=== PATIENT | female | born 1940 | race Asian ===

== ENCOUNTER → 2016-10-27 | Outpatient (CLI) | payer MEDICARE, BC | END | disposition home or self-care (01) | LOC: RADPV 11:52 | PROVIDERS: ATTEND Orthopaedic Surgery | DX: M17.0 Bilateral primary osteoarthritis of knee (principal); M25.762 Osteophyte, left knee; M25.761 Osteophyte, right knee ==

== ENCOUNTER → 2016-12-22 | Outpatient (CLI) | payer MEDICARE, BC | END | disposition home or self-care (01) | LOC: RADPV 11:20 | PROVIDERS: ATTEND Family Medicine | DX: J18.9 Pneumonia, unspecified organism (principal); I70.0 Atherosclerosis of aorta | CPT/HCPCS: 71020 ==

== ENCOUNTER → 2018-02-14 | Outpatient (CLI) | payer MEDICARE, BC | END | disposition home or self-care (01) | LOC: RADPV 09:50 | PROVIDERS: ATTEND Orthopaedic Surgery | DX: M17.0 Bilateral primary osteoarthritis of knee (principal) ==

== ENCOUNTER → 2018-06-10 | Outpatient (CLI) | payer MEDICARE, BC | END | disposition home or self-care (01) | LOC: RADPV 10:50 | PROVIDERS: ATTEND Nurse Practitioner | DX: M47.816 Spondylosis without myelopathy or radiculopathy, lumbar region (principal) | CPT/HCPCS: 72100 ==

== ENCOUNTER 2018-06-27 07:13 | Day surgery (SDC) | payer MEDICARE, BC ==
[~2018-06-27] VITALS: Ht 157.5 cm; Wt 91.4 kg
[2018-06-27] MEDS ORDERED: RINGERS SOLUTION,LACTATED 1,000 ML IV ONE ×3 (07:30→08:03)
[2018-06-27] MEDS ORDERED: CeFAZolin 2 GM/DEXTROSE 50 ML IV ONE ×2 (08:03→09:30)
[2018-06-27] MEDS ORDERED: ESCI10TA PO (08:57)
[2018-06-27] MEDS ORDERED: SULF1TAB4 PO (08:57)
[2018-06-27] MEDS ORDERED: HYDR25TA PO (08:57)
[2018-06-27] MEDS ORDERED: VALS160T2 PO (08:57)
[2018-06-27 09:24] LABS: BASOPHILS % (AUTO) 0.8 % (0.0-2.0); EOSINOPHILS % (AUTO) 2.5 % (1.0-6.0); HEMATOCRIT 39.7 % (36-46); HEMOGLOBIN 13.5 g/dL (12.0-16.0); LYMPHOCYTES # (AUTO) 1.6 K/uL (1.0-4.8); LYMPHOCYTES % (AUTO) 20.9 % (22.0-44.0); MEAN CORPUSCULAR HEMOGLOBIN 29.1 pg (26.0-34.0); MEAN CORPUSCULAR HGB CONC 33.9 G/dL (31.0-37.0); MEAN CORPUSCULAR VOLUME 86 fL (80-100); MONOCYTES # (AUTO) 0.5 K/uL (0.1-1.0); MONOCYTES % (AUTO) 6.4 % (2.0-9.0); NEUTROPHILS # (AUTO) 5.3 K/uL (1.8-7.7); NEUTROPHILS % (AUTO) 69.4 % (40.0-70.0); PLATELET COUNT (AUTO) 250 K/uL (150-450); RED BLOOD CELL COUNT(AUTO) 4.62 MIL/uL (4.00-5.20); RED CELL DISTRIBUTION WIDTH 13.9 % (11.5-14.5)
[2018-06-27 09:33] LABS: CALCIUM, TOTAL 8.4 mg/dL (8.8-10.5); CREATININE 0.94 mg/dL (0.60-1.30); POTASSIUM 4.2 mmol/L (3.5-5.1)
[2018-06-27 09:57] LABS: INR 0.9 (0.9-1.1); PROTHROMBIN TIME 9.4 SEC (9.4-11.6)
[2018-06-27] MEDS ORDERED: BUPIVACAINE HCL/PF 0.5% 30 ML VIAL ONE (10:30)
[2018-06-27] MEDS ORDERED: ACETAMINOPHEN 1000 MG/ISO-OSM 100 ML IV ONE (10:34)
[2018-06-27] MEDS ORDERED: MEPERIDINE-PF 25 MG/ML VIAL IVP PRN (10:45)
[2018-06-27] MEDS ORDERED: FentaNYL CITRATE-PF 100 MCG/2 ML VIAL IVP PRN (10:45)
[2018-06-27] MEDS ORDERED: HYDROmorphone 2 MG/ML SYRINGE IVP PRN (10:45)
[2018-06-27] MEDS ORDERED: HYDROmorphone 2 MG/ML SYRINGE ONE (11:35)
[2018-06-27] MEDS ORDERED: PHENYLEPHRINE HCL 10 MG/ML VIAL IVP ONE (12:00)
[2018-06-27] MEDS ORDERED: DEXAMETHASONE SOD PHOS 4 MG/ML VIAL IVP ONE (12:00)
[2018-06-27] MEDS ORDERED: 0.9% SODIUM CHLORIDE 10 ML VIAL IVP ONE (12:00)
[2018-06-27] MEDS ORDERED: KETOROLAC TROMETHAMINE 60 MG/2 ML VIAL IM ONE (12:00)
[2018-06-27] MEDS ORDERED: PROPOFOL 1% 20 ML VIAL IVP ONE (12:00)
[2018-06-27] MEDS ORDERED: MIDAZOLAM HCL 2 MG/2 ML VIAL IVP ONE (12:00)
[2018-06-27] MEDS ORDERED: LIDOCAINE/PF 2% 5 ML VIAL INJ ONE (12:00)
[2018-06-27] MEDS ORDERED: FentaNYL CITRATE-PF 100 MCG/2 ML VIAL IVP ONE (12:00)
[2018-06-27] MEDS ORDERED: ONDANSETRON HCL 4 MG/2 ML VIAL IVP ONE (12:00)
[2018-06-27] MEDS ORDERED: OXYGEN THERAPY IH SCH (20:00)
== END 2018-06-27 12:30 | disposition home or self-care (01) ==
LOC: SURGERY 07:13
PROVIDERS: ATTEND Orthopaedic Surgery
DX: M70.41 Prepatellar bursitis, right knee (principal); I10 Essential (primary) hypertension; M17.0 Bilateral primary osteoarthritis of knee; M51.16 Intervertebral disc disorders with radiculopathy, lumbar region; M54.2 Cervicalgia; E66.3 Overweight; M23.51 Chronic instability of knee, right knee; Z79.01 Long term (current) use of anticoagulants; F32.9 Major depressive disorder, single episode, unspecified; Z68.36 Body mass index [BMI] 36.0-36.9, adult; Z88.0 Allergy status to penicillin; Z88.1 Allergy status to other antibiotic agents; Z90.49 Acquired absence of other specified parts of digestive tract; Z90.710 Acquired absence of both cervix and uterus; Z87.01 Personal history of pneumonia (recurrent); Z79.891 Long term (current) use of opiate analgesic; Z98.890 Other specified postprocedural states; Z79.899 Other long term (current) drug therapy
CPT/HCPCS: 27340; 36415; 80048; 85025; 85610; 85730; 93005; J0131; J0690; J1100; J1170; J1885; J2250; J2370; J2405; J2704; J3010; J3490 ×2; J7120

== ENCOUNTER 2019-04-03 05:48 | Inpatient (IN) | payer MEDICARE, BC ==
[2019-03-28 15:17] LABS: BASOPHILS % (AUTO) 0.5 % (0.0-2.0); EOSINOPHILS % (AUTO) 1.2 % (1.0-6.0); HEMATOCRIT 43.1 % (36-46); LYMPHOCYTES % (AUTO) 13.6 % (22.0-44.0); MEAN CORPUSCULAR HEMOGLOBIN 29.3 pg (26.0-34.0); MEAN CORPUSCULAR HGB CONC 32.5 G/dL (31.0-37.0); MEAN CORPUSCULAR VOLUME 90 fL (80-100); MONOCYTES # (AUTO) 0.3 K/uL (0.1-1.0); MONOCYTES % (AUTO) 4.4 % (2.0-9.0); NEUTROPHILS # (AUTO) 5.9 K/uL (1.8-7.7); NEUTROPHILS % (AUTO) 80.3 % (40.0-70.0); PLATELET COUNT (AUTO) 239 K/uL (150-450); RED BLOOD CELL COUNT(AUTO) 4.77 MIL/uL (4.00-5.20); RED CELL DISTRIBUTION WIDTH 13.7 % (11.5-14.5)
[2019-03-28 15:33] LABS: BILIRUBIN,TOTAL 0.7 mg/dL (0.1-1.0); CALCIUM, TOTAL 9.1 mg/dL (8.8-10.5); CREATININE 1.03 mg/dL (0.60-1.30); POTASSIUM 4.4 mmol/L (3.5-5.1); TOTAL PROTEIN, SERUM 6.8 g/dL (6.4-8.2)
[2019-03-28 15:36] LABS: INR 0.9 (0.9-1.1); PROTHROMBIN TIME 9.5 SEC (9.4-11.6)
[~2019-04-03] VITALS: Ht 157.5 cm; Wt 92.3 kg
[~2019-04-03 05:48] MED LIST: ESCI10TA PO; HYDR25TA PO; RINGERS SOLUTION,LACTATED 1,000 ML IV ONE; SULF1TAB4 PO; VALS160T2 PO
[2019-04-03] MEDS ORDERED: CLINDAMYCIN 900 MG/D5% WATER 50 ML IV ONE (06:00)
[2019-04-03] MEDS ORDERED: BUPIVACAINE HCL/PF 0.5% 30 ML VIAL ONE (06:15)
[2019-04-03] MEDS ORDERED: RINGERS SOLUTION,LACTATED 1,000 ML IV ONE (06:15)
[2019-04-03] MEDS ORDERED: SODIUM CL IRRIG SOLN BAG 3,000 ML IRRIG ONE (06:16)
[2019-04-03] MEDS ORDERED: BUPIVACAINE LIPOSOME/PF 1.3%-13.3MG/ML SUSPENSION 20 ML VIAL INJ ONE (06:30)
[2019-04-03] MEDS ORDERED: GABA-531 PO (06:56)
[2019-04-03] MEDS ORDERED: TRAM50TA4 PO (06:56)
[2019-04-03] MEDS ORDERED: DICL2.5D8 OU (06:56)
[2019-04-03] MEDS: RINGERS SOLUTION,LACTATED 1,000 ML IV SCH (07:00)
[2019-04-03] MEDS ORDERED: TRANEXAMIC ACID 1,000 MG in DEXTROSE 5%-WATER 50 ML IV ONE (07:00)
[2019-04-03] MEDS ORDERED: CELECOXIB 200 MG CAPSULE PO ONE (07:15)
[2019-04-03] MEDS ORDERED: CELECOXIB 200 MG CAPSULE ONE (07:17)
[2019-04-03] MEDS ORDERED: SODIUM CHLORIDE 0.9% 100 ML ONE (07:44)
[2019-04-03] MEDS ORDERED: MEPERIDINE-PF 25 MG/ML VIAL IVP PRN (08:45)
[2019-04-03] MEDS ORDERED: FentaNYL CITRATE-PF 100 MCG/2 ML VIAL IVP PRN (08:45)
[2019-04-03] MEDS ORDERED: HYDROmorphone 2 MG/ML SYRINGE IVP PRN ×2 (08:45→09:00)
[2019-04-03 09:59] VITALS: BP 158/96
[2019-04-03 11:51] VITALS: BP 123/66
[2019-04-03] MEDS ORDERED: FentaNYL CITRATE-PF 100 MCG/2 ML VIAL IVP ONE (12:00)
[2019-04-03] MEDS ORDERED: DEXAMETHASONE SOD PHOS 4 MG/ML VIAL IVP ONE (12:00)
[2019-04-03] MEDS ORDERED: ONDANSETRON HCL 4 MG/2 ML VIAL IVP ONE (12:00)
[2019-04-03] MEDS ORDERED: PHENYLEPHRINE HCL 10 MG/ML VIAL IVP ONE (12:00)
[2019-04-03] MEDS ORDERED: LIDOCAINE/PF 2% 5 ML VIAL INJ ONE (12:00)
[2019-04-03] MEDS ORDERED: PROPOFOL 1% 20 ML VIAL IVP ONE (12:00)
[2019-04-03] MEDS: CYCLOBENZAPRINE HCL 10 MG TABLET PO SCH ×2 (12:17→16:22)
[2019-04-03] MEDS: OxyCODONE HCL/ACETAMINOPHEN 5-325 MG TABLET PO PRN (12:19)
[2019-04-03] MEDS: ACETAMINOPHEN 1000 MG/ISO-OSM 100 ML IV SCH (16:22)
[2019-04-03] MEDS: CELECOXIB 200 MG CAPSULE PO SCH (16:22)
[2019-04-03] MEDS: CLINDAMYCIN 900 MG/D5% WATER 50 ML IV SCH (17:38)
[2019-04-03 19:53] VITALS: BP 108/59
[2019-04-04] MEDS: CYCLOBENZAPRINE HCL 10 MG TABLET PO SCH ×3 (00:28→15:04)
[2019-04-04] MEDS: ACETAMINOPHEN 1000 MG/ISO-OSM 100 ML IV SCH ×2 (00:28→08:28)
[2019-04-04 04:35] VITALS: BP 101/54
[2019-04-04] MEDS: CLINDAMYCIN 900 MG/D5% WATER 50 ML IV SCH (04:45)
[2019-04-04 04:53] VITALS: BP 109/52
[2019-04-04] MEDS: OXYGEN THERAPY IH SCH (08:00)
[2019-04-04 08:05] VITALS: BP 115/57
[2019-04-04] MEDS: CELECOXIB 200 MG CAPSULE PO SCH (08:28)
[2019-04-04] MEDS: ENOXAPARIN SODIUM 40 MG/0.4 ML PF SYRINGE SQ SCH (08:28)
[2019-04-04 11:42] VITALS: BP 114/55
[2019-04-04] MEDS: OxyCODONE HCL/ACETAMINOPHEN 5-325 MG TABLET PO PRN ×2 (12:29→23:06)
[2019-04-04 15:45] VITALS: BP 108/64
[2019-04-04 21:10] VITALS: BP 117/57
[2019-04-05 00:11] VITALS: BP 123/55
[2019-04-05] MEDS: CYCLOBENZAPRINE HCL 10 MG TABLET PO SCH ×4 (00:18→23:34)
[2019-04-05 05:42] VITALS: BP 117/59
[2019-04-05] MEDS: OxyCODONE HCL/ACETAMINOPHEN 5-325 MG TABLET PO PRN ×3 (06:46→21:18)
[2019-04-05] MEDS: OXYGEN THERAPY IH SCH (08:00)
[2019-04-05] MEDS: ENOXAPARIN SODIUM 40 MG/0.4 ML PF SYRINGE SQ SCH (08:15)
[2019-04-05] MEDS: CELECOXIB 200 MG CAPSULE PO SCH (08:15)
[2019-04-05 08:27] VITALS: BP 103/60
[2019-04-05] MEDS: RINGERS SOLUTION,LACTATED 1,000 ML IV SCH (11:02)
[2019-04-05 11:51] VITALS: BP 107/56
[2019-04-05 16:47] VITALS: BP 115/62
[2019-04-05 20:00] VITALS: BP 136/65
[2019-04-06 00:10] VITALS: BP 120/55
[2019-04-06 03:45] VITALS: BP 129/72
[2019-04-06 08:07] VITALS: BP 122/70
[2019-04-06] MEDS: CYCLOBENZAPRINE HCL 10 MG TABLET PO SCH (08:07)
[2019-04-06] MEDS: CELECOXIB 200 MG CAPSULE PO SCH (08:07)
[2019-04-06] MEDS: ENOXAPARIN SODIUM 40 MG/0.4 ML PF SYRINGE SQ SCH (08:08)
[2019-04-06] MEDS: OxyCODONE HCL/ACETAMINOPHEN 5-325 MG TABLET PO PRN (11:10)
[2019-04-06 11:44] VITALS: BP 125/62
== END 2019-04-06 13:15 | DRG 470 ==
LOC: 5N 05:48 → 4E 08:55
PROVIDERS: ADMIT Orthopaedic Surgery; ATTEND Orthopaedic Surgery
PROC: 0SRC0J9 Replacement of Right Knee Joint with Synthetic Substitute, Cemented, Open Approach (ICD-10-PCS; principal; 2019-04-03 07:30)
DX: M17.11 Unilateral primary osteoarthritis, right knee (principal); M46.90 Unspecified inflammatory spondylopathy, site unspecified; E66.01 Morbid (severe) obesity due to excess calories; F41.9 Anxiety disorder, unspecified; I10 Essential (primary) hypertension; G89.29 Other chronic pain; F32.9 Major depressive disorder, single episode, unspecified; Z68.37 Body mass index [BMI] 37.0-37.9, adult; Z87.01 Personal history of pneumonia (recurrent); Z90.710 Acquired absence of both cervix and uterus; Z90.49 Acquired absence of other specified parts of digestive tract
CPT/HCPCS: 87081; 88300; 93005; 97110; 97116; 97162; 97165; 97530; 97535; C9290; G0378; J0131; J1100; J1170; J1650; J2370; J2405; J2704; J3010; J3490; J7050; J7060; J7120